=== PATIENT | female | born 1995 | race Caucasian/White ===

== ENCOUNTER 2020-01-18 00:28 | Emergency (ER) | payer MEDICAID ==
[~2020-01-18] VITALS: Ht 170.2 cm; Wt 92.1 kg
[2020-01-18 00:48] VITALS: Ht 170.2 cm; Wt 92.1 kg
[2020-01-18 02:50] VITALS: BP 115/59
== END 2020-01-18 02:50 | disposition home or self-care (01) ==
LOC: ED 00:28
DX: J45.909 Unspecified asthma, uncomplicated (principal); F12.10 Cannabis abuse, uncomplicated
CPT/HCPCS: 99406